=== PATIENT | male | born 1995 | race Caucasian/White ===

== ENCOUNTER 2017-11-22 13:48 | Emergency (ER) | payer MEDICAID ==
[~2017-11-22] VITALS: Ht 175.3 cm; Wt 143.7 kg
[2017-11-22 13:54] VITALS: BP 158/83
[2017-11-22] MEDS ORDERED: IBUPROFEN 200 MG TABLET ONE (14:57)
[2017-11-22] MEDS ORDERED: IBUPROFEN 200 MG TABLET PO ONE (15:00)
== END 2017-11-22 15:09 | disposition home or self-care (01) ==
LOC: ED 15:03
DX: S20.211A Contusion of right front wall of thorax, initial encounter (principal); S30.0XXA Contusion of lower back and pelvis, initial encounter; Y04.8XXA Assault by other bodily force, initial encounter; Y93.89 Activity, other specified; Y92.89 Other specified places as the place of occurrence of the external cause; Y99.8 Other external cause status
CPT/HCPCS: 71046; 72110; 99284

== ENCOUNTER 2019-12-16 02:57 | Emergency (ER) | payer MEDICAID ==
[~2019-12-16] VITALS: Ht 175.3 cm; Wt 157.9 kg
[2019-12-16 03:00] VITALS: BP 143/65
== END 2019-12-16 03:33 | disposition home or self-care (01) ==
LOC: ED 03:27
DX: L40.0 Psoriasis vulgaris (principal)
CPT/HCPCS: 99283

== ENCOUNTER 2021-01-15 17:16 | Emergency (ER) | payer MEDICARE, MEDICAID ==
[~2021-01-15] VITALS: Ht 175.3 cm; Wt 166.2 kg
[2021-01-15 17:28] VITALS: BP 129/75
--- NOTE | 2021-01-15 18:13 | NUR ---
can pusher: Pt ambulatory to room from lobby at this time.
--- NOTE | 2021-01-15 19:01 | NUR ---
REPORT GIVEN TO [facility]
--- NOTE | 2021-01-15 19:05 | NUR ---
Patient/Caregiver given discharge instructions and they have confirmed that they understand the instructions. Patient ambulatory with steady gait. NAD, all questions answered appropriately, denies additional needs at this time. No personal belongings left in room after discharge.
== END 2021-01-15 19:06 | disposition home or self-care (01) ==
LOC: ED 17:46
DX: L20.84 Intrinsic (allergic) eczema (principal)
CPT/HCPCS: 99282